=== PATIENT | male | born 1995 | race Caucasian/White ===

== ENCOUNTER 2023-09-19 22:34 | Emergency (ER) | payer OTHER ==
[~2023-09-19] VITALS: Ht 162.6 cm; Wt 66.0 kg
[~2023-09-19 22:34] MED LIST: IBUP-2029 MT; METH-653 MT
[2023-09-19 22:43] VITALS: BP 118/57; PULSE 66; RESP 20; TEMP 98.3; O2SAT 100
== END 2023-09-19 23:36 | disposition home or self-care (01) ==
LOC: ER 22:34
DX: Z04.1 Encounter for examination and observation following transport accident (principal); F19.90 Other psychoactive substance use, unspecified, uncomplicated
CPT/HCPCS: 99281

== ENCOUNTER 2024-10-12 03:34 | Emergency (ER) | payer OTHER ==
[~2024-10-12] VITALS: Ht 165.1 cm; Wt 68.8 kg
[2024-10-12 03:44] VITALS: O2SAT 99
[2024-10-12 03:48] VITALS: BP 127/77; PULSE 69; RESP 14; TEMP 37.2; O2SAT 98
[2024-10-12] MEDS ORDERED: IBUP-2029 MT (04:21)
== END 2024-10-12 04:38 | disposition home or self-care (01) ==
LOC: ER 03:34
DX: M25.561 Pain in right knee (principal); F19.90 Other psychoactive substance use, unspecified, uncomplicated; Z79.899 Other long term (current) drug therapy
CPT/HCPCS: 99282